=== PATIENT | female | born 1950 | race Caucasian/White ===

== ENCOUNTER 2016-03-27 17:08 | Emergency (ER) | payer BC ==
--- NOTE | 2016-03-27 20:44 | ED NURSING NOTES ---
Clinical Report - Nurses [facility] [address] [place] [address] 03/27/2016 17:08 [id number] Triage time 17:18 Mar 27 2016. Acuity: LEVEL 2. Chief Complaint: ALTERED MENTAL STATUS. Alert. No acute distress. UMAIR COMA SCORE: Sheldon Coma Scale: 15- eyes open spontaneously (4); best verbal response- oriented x 4 (5); best motor response- obeys commands (6). --17:31 Itzel Her R.N. 17:18 03/27/16. BP: 124/66. HR: 68. RR: 18. O2 saturation: 99%. Temp: 97.7 F. Pain level now 0/10. --17:31 Itzel Her R.N. Weight: 84.8 kg stated. Height/Length: 67 inches Per Patient. BMI: 29.3. --17:17 Itzel Her R.N. Medications ASA Oral. Bkc-Qjx-Jsni-D Oral. Glucosamine-Chondroitin Oral. --17:29 Itzel Her R.N. Losartan Potassium Oral. Magnesium Oral. MSM Oral. Prempro Oral. Simvastatin Oral. Vitamins/Minerals Oral. --17:29 Itzel Her R.N. Lantus Subcutaneous. --17:30 Itzel Her R.N. (meds in progress). --17:31 Itzel Her R.N. Allergies Sulfa Antibiotics. --17:29 Itzel Her R.N. History Arrived by private vehicle. Historian: patient. Primary physician (Dr. Hinton). ( found down/unconscious in the horse barn tonight around 1700, unknown amount of time pt was out in the barn. Pt was outside feeding the horses, went to go check on her, found her propped up against the stall wall, disoriented, spit/foam around her mouth Medics stated. BS 58. cannot pinpoint what time or how long this event took place. did have Glucagon Pen at home for emergencies, not used by . Pt states she remembers getting dizzy only.). This started just prior to arrival. Unknown when patient was last known well. Treatment PLATE MILL MILL HAND: Finger stick glucose performed (58, 140). PAST MEDICAL HX: Denies current . NUTRITIONAL RISK ASSESSMENT: The nutritional risk assessment revealed no deficiencies. FUNCTIONAL ASSESSMENT: Functional assessment: no impairments noted. LEARNING NEEDS ASSESSMENT: The learning needs assessment revealed no barriers. SKIN INTEGRITY ASSESSMENT: Skin integrity risk assessment completed. No skin integrity risk identified. --17:31 Itzel Her R.N. PROBLEMS: Head Injury. Contusion. LNMP - Last Normal Menstrual Period. Abrasion(s). Concussion. Tetanus Status. Fall. Laceration. Arrhythmia. Diabetes Mellitus. --17:30 Itzel Her R.N. ADDITIONAL SURGERIES: Dental Surgery. Intestinal surgery at 3 months and 21. --17:30 Itzel Her R.N. Interventions ID band on patient. To room. --17:31 Itzel Her R.N. PHYSICAL ASSESSMENT To room via stretcher. GENERAL / NEURO / PSYCH: The patient is disoriented to situation. RESPIRATORY: Respirations not labored. CVS: Capillary refill less than 2 seconds. SKIN: Skin is warm and dry. --17:38 Itzel Her R.N. NURSING PROGRESS NOTES Cardiac rhythm: normal sinus rhythm. compliance monitor, pulse oximeter and NIBP monitor placed on patient; secured entrance monitor- Lead II; monitor alarms on. Patient gowned. Head of bed elevated. Reassurance given. Side rails up x 2. Bed placed in lowest position. Brakes of bed on. ( Dr. Gill has assessed the pt.). --17:39 Itzel Her R.N. 17:38 03/27/16. BP: 124/77. HR: 69. RR: 18. O2 saturation: 99%. Pain level now 0/10. --17:39 Itzel Her R.N. 17:39 03/27/2016 Site #1 started prior to arrival by EMS via IV in the right antecubital space with an 20g angiocath; one attempt. Saline lock flushed with 5 mL saline. --17:39 Itzel Her R.N. 17:40 03/27/2016 D-50 IVP 12.5 gm given over 1 minute(s) via site #1. IV patency established. IV site checked: no pain, redness, or swelling. IV flushed thoroughly pre- and post-medication administration. IVP given by RN. --17:40 Itzel Her R.N. Finger stick glucose: 72 during triage; performed by nurse; result shown to the ED physician. --17:46 Itzel Her R.N. Finger stick glucose: 95; performed by nurse; result shown to the ED physician. --18:06 Itzel Her R.N. ( apple juice - po challenge). --18:31 Itzel Her R.N. Finger stick glucose: 103. ( Dr. Gill in room re assessing pt.). --19:22 Itzel Her R.N. 19:21 03/27/16. BP: 119/74. HR: 100. --19:22 Itzel Her R.N. 19:41 03/27/16. BP: 133/81. HR: 119. RR: 16. O2 saturation: 97% on room air. Pain level now: 04/22. --19:42 Emilie Valderrama ( Patient given PO food and fluids per provider okay). --20:07 Emilie Valderrama. DISPOSITION / DISCHARGE 20:54 03/27/16. BP: 120/82 (regular adult cuff) taken on the left arm, via an automated monitor, while sitting. HR: 100 (regular, normal rate and strong). RR: 18 (regular, unlabored and normal). O2 saturation: 96% on room air. Temp: 96.3 F (oral). --20:57 Mohit Mercer 21:18. Departure time: 2117. Condition at departure: stable. The goals identified in the patient's plan of care were met. No learning barriers present. Discharge instructions provided and reviewed with the patient. Reviewed medication(s) side effects, precautions, dosing and course information. Prescription(s) given to the patient (Liv verbalizes importance of finishing all prescribed antibiotics.). Activity restrictions (rest) reviewed. Patient verbalized understanding. Written instructions provided in Chinese. ( Liv verbalizes understanding of all d/c instructions including need for f/u with PCP. She has no questions and voices no concerns at this time.). The patient was discharged by the physician. She was discharged home and accompanied by family. She left the Emergency Department ambulatory and via private vehicle. Family member driving. UMAIR COMA SCORE: Sheldon Coma Scale: 15- eyes open spontaneously (4); best verbal response- oriented x 4 (5); best motor response- obeys commands (6). --00:06 Amaury Mcdaniel R.N. Locked/Released at 03/28/2016 0:08 by Amaury Mcdaniel R.N.
--- NOTE | 2016-03-27 20:44 | ED NURSING NOTES ---
Clinical Report - Nurses [facility] [address] [place] [address] 03/27/2016 17:08 [id number] TRI[facility] Triage time 17:18 Mar 27 2016. Acuity: LEVEL 2. Chief Complaint: ALTERED MENTAL STATUS. Alert. No acute distress. UMAIR COMA SCORE: Lovelady Coma Scale: 15- eyes open spontaneously (4); best verbal response- oriented x 4 (5); best motor response- obeys commands (6). --17:31 Itzel Her R.N. 17:18 03/27/16. BP: 124/66. HR: 68. RR: 18. O2 saturation: 99%. Temp: 97.7 F. Pain level now 0/10. --17:31 Itzel Her R.N. Weight: 84.8 kg stated. Height/Length: 67 inches Per Patient. BMI: 29.3. --17:17 Itzel Her R.N. Medications ASA Oral. Vjr-Ipl-Krru-D Oral. Glucosamine-Chondroitin Oral. --17:29 Itzel Her R.N. Losartan Potassium Oral. Magnesium Oral. MSM Oral. Prempro Oral. Simvastatin Oral. Vitamins/Minerals Oral. --17:29 Itzel Her R.N. Lantus Subcutaneous. --17:30 Itzel Her R.N. (meds in progress). --17:31 Itzel Her R.N. Allergies Sulfa Antibiotics. --17:29 Itzel Her R.N. History Arrived by private vehicle. Historian: patient. Primary physician (Dr. Hinton). ( found down/unconscious in the horse barn tonight around 1700, unknown amount of time pt was out in the barn. Pt was outside feeding the horses, went to go check on her, found her propped up against the stall wall, disoriented, spit/foam around her mouth Medics stated. BS 58. cannot pinpoint what time or how long this event took place. did have Glucagon Pen at home for emergencies, not used by . Pt states she remembers getting dizzy only.). This started just prior to arrival. Unknown when patient was last known well. Treatment INSULATION INSTALLER: Finger stick glucose performed (58, 140). PAST MEDICAL HX: Denies current . NUTRITIONAL RISK ASSESSMENT: The nutritional risk assessment revealed no deficiencies. FUNCTIONAL ASSESSMENT: Functional assessment: no impairments noted. LEARNING NEEDS ASSESSMENT: The learning needs assessment revealed no barriers. SKIN INTEGRITY ASSESSMENT: Skin integrity risk assessment completed. No skin integrity risk identified. --17:31 Itzel Her R.N. PROBLEMS: Head Injury. Contusion. LNMP - Last Normal Menstrual Period. Abrasion(s). Concussion. Tetanus Status. Fall. Laceration. Arrhythmia. Diabetes Mellitus. --17:30 Itzel Her R.N. ADDITIONAL SURGERIES: Dental Surgery. Intestinal surgery at 3 months and 21. --17:30 Itzel Her R.N. Interventions ID band on patient. To room. --17:31 Itzel Her R.N. PHYSICAL ASSESSMENT To room via stretcher. GENERAL / NEURO / PSYCH: The patient is disoriented to situation. RESPIRATORY: Respirations not labored. CVS: Capillary refill less than 2 seconds. SKIN: Skin is warm and dry. --17:38 Itzel Her R.N. NURSING PROGRESS NOTES Cardiac rhythm: normal sinus rhythm. manager floral, pulse oximeter and NIBP monitor placed on patient; cam maker- Lead II; monitor alarms on. Patient gowned. Head of bed elevated. Reassurance given. Side rails up x 2. Bed placed in lowest position. Brakes of bed on. ( Dr. Gill has assessed the pt.). --17:39 Itzel Her R.N. 17:38 03/27/16. BP: 124/77. HR: 69. RR: 18. O2 saturation: 99%. Pain level now 0/10. --17:39 Itzel Her R.N. 17:39 03/27/2016 Site #1 started prior to arrival by EMS via IV in the right antecubital space with an 20g angiocath; one attempt. Saline lock flushed with 5 mL saline. --17:39 Itzel Her R.N. 17:40 03/27/2016 D-50 IVP 12.5 gm given over 1 minute(s) via site #1. IV patency established. IV site checked: no pain, redness, or swelling. IV flushed thoroughly pre- and post-medication administration. IVP given by RN. --17:40 Itzel Her R.N. Finger stick glucose: 72 during triage; performed by nurse; result shown to the ED physician. --17:46 Itzel Her R.N. Finger stick glucose: 95; performed by nurse; result shown to the ED physician. --18:06 Itzel Her R.N. ( apple juice - po challenge). --18:31 Itzel Her R.N. Finger stick glucose: 103. ( Dr. Gill in room re assessing pt.). --19:22 Itzel Her R.N. 19:21 03/27/16. BP: 119/74. HR: 100. --19:22 Itzel Her R.N. 19:41 03/27/16. BP: 133/81. HR: 119. RR: 16. O2 saturation: 97% on room air. Pain level now: 04/22. --19:42 Emilie Valderrama ( Patient given PO food and fluids per provider okay). --20:07 Emilie Valderrama. DISPOSITION / DISCHARGE 20:54 03/27/16. BP: 120/82 (regular adult cuff) taken on the left arm, via an automated monitor, while sitting. HR: 100 (regular, normal rate and strong). RR: 18 (regular, unlabored and normal). O2 saturation: 96% on room air. Temp: 96.3 F (oral). --20:57 Mohit Mercer 21:18. Departure time: 2117. Condition at departure: stable. The goals identified in the patient's plan of care were met. No learning barriers present. Discharge instructions provided and reviewed with the patient. Reviewed medication(s) side effects, precautions, dosing and course information. Prescription(s) given to the patient (Liv verbalizes importance of finishing all prescribed antibiotics.). Activity restrictions (rest) reviewed. Patient verbalized understanding. Written instructions provided in Croatian. ( Liv verbalizes understanding of all d/c instructions including need for f/u with PCP. She has no questions and voices no concerns at this time.). The patient was discharged by the physician. She was discharged home and accompanied by family. She left the Emergency Department ambulatory and via private vehicle. Family member driving. UMAIR COMA SCORE: Lovelady Coma Scale: 15- eyes open spontaneously (4); best verbal response- oriented x 4 (5); best motor response- obeys commands (6). --00:06 Amaury Mcdaniel R.N. Locked/Released at 03/28/2016 0:08 by Amaury Mcdaniel R.N.
--- NOTE | 2016-03-27 20:44 | ED CLINICAL REPORT ---
Clinical Report - Physicians/Mid Levels [facility] [address] [place] [address] 03/27/2016 17:08 Patient: LIV RUGGIERO Time Seen: 17:19; initial patient contact. Arrived- By ambulance. Historian- patient and EMS personnel. HISTORY OF PRESENT ILLNESS Chief Complaint: ABNORMAL GLUCOSE. This started just prior to arrival and is still present. It was abrupt in onset. At its maximum, severity described as moderate. When seen in the E.D., severity described as mild. Modifying factors. Not worsened by anything. Not relieved by anything. The patient has had fatigue and weakness. (Found down in barn by . 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 Similar symptoms previously: None. Recent medical care: Not recently seen/assessed. REVIEW OF SYSTEMS No fever, cough, difficulty breathing, chest pain or abdominal pain. No nausea, vomiting, diarrhea, chills or palpitations. She has had sinus drainage, nasal congestion and blackouts. All systems otherwise negative, except as recorded above. PAST HISTORY Head Injury. Contusion. LNMP - Last Normal Menstrual Period. Abrasion(s). Concussion. Tetanus Status. Fall. Laceration. Arrhythmia. Diabetes Mellitus. ADDITIONAL SURGERIES: Dental Surgery. Intestinal surgery at 3 months and 21. Medications: Lantus Subcutaneous. Losartan Potassium Oral. Magnesium Oral. MSM Oral. Prempro Oral. Simvastatin Oral. Vitamins/Minerals Oral. ASA Oral. Edr-Xyi-Lgjd-D Oral. Glucosamine-Chondroitin Oral. Allergies: Sulfa Antibiotics. SOCIAL HISTORY Smoker - current status unknown. No recent travel. ADDITIONAL NOTES The nursing notes have been reviewed with agreement regarding the chief complaint, PMH and patient medications and allergies. PHYSICAL EXAM Vital Signs: 03/27/2016 17:18 BP: 124/66. HR: 68. RR: 18. O2 saturation: 99%. Temp: 97.7 F. Have been reviewed as normal. Appearance: Alert. No acute distress. Eyes: Eyes normal inspection. ENT: Pharynx normal. CVS: Abnormal rhythm, which is regularly irregular. Rate normal. Respiratory: No respiratory distress. Breath sounds normal. Abdomen: No visible injury. Soft and nontender. Bowel sounds normal. Skin: Skin warm and dry. Normal skin color. No rash. Extremities: No calf tenderness. No lower extremity edema. Neuro: Oriented X 3. No motor deficit. LABS, X-RAYS, AND EKG EKG: EKG time: (1720). Abnormal rhythm present (ectopic atrial rhythm w/ PAC's and abberant conduction). Normal P waves. Normal NAYELI. Normal QRS complex. Normal axis. Normal ST and T waves and QTc. Prior EKG unavailable. The study has been interpreted contemporaneously by me. The study has been independently viewed by me. The EKG appears to be a good tracing. Interpretation time: 1720. Laboratory Tests: CBC w Diff: (VIDYA: 03/27/2016 18:45) ( [facility] [place] 19:02) Final results Test Result Flag Units (Reference) WHITE BLOOD COUNT 11.6 H K/uL (4.5-11.5) RED BLOOD COUNT 4.86 M/uL (4.00-5.20) HEMOGLOBIN 14.9 gm/dL (12.0-16.0) HEMATOCRIT 46.7 H % (36.0-46.0) MEAN CELL VOLUME 96 fL (80-100) MEAN CORPUSCULAR HGB 31 pg (26-34) MEAN CORPUSCULAR HGB CONC 32 g/dL (31-37) RED CELL DISTRIBUTION WIDTH 12.7 % (11.6-14.8) PLATELET COUNT 224 K/uL (150-400) LYMPH % 12.3 L % (25-40) MONO % 4.2 % (3-14) GRANULOCYTE % 83.5 (53-90) CMP: (VIDYA: 03/27/2016 18:45) ( Msg[facility]cv[facility] 03/27/2016 19:08) Final results Test Result Flag Units (Reference) GLUCOSE 74 mg/dL (70-110) BUN 16 mg/dL (7-18) CREATININE 1.1 mg/dL (0.6-1.3) Estimated GFR 53.15 mL/min Estimated GFR- >60 mL/min Note: Persistent reduction over 3 months in eGFR<60 mL/min/1.73 m2 defines CKD. Patients with eGFR values>=60 mL/min/1.73 m2 may also have CKD if evidence ofpersistent proteinuria. Additional information may be foundat www.kidney.org. SODIUM 142 mmol/L (136-145) POTASSIUM 3.7 mmol/L (3.5-5.1) CHLORIDE 107 mmol/L (98-107) CARBON DIOXIDE 26 mmol/L (21-32) CALCIUM 8.9 mg/dL (8.5-10.1) TOTAL PROTEIN 6.6 g/dL (6.4-8.2) ALBUMIN 3.2 L g/dL (3.3-5.0) BILIRUBIN, TOTAL 0.2 mg/dL (0.0-1.0) ALKALINE PHOSPHATASE 65 U/L (46-116) AST (SGOT) 18 U/L (15-37) ALT (SGPT) 25 U/L (12-78) . PROGRESS AND PROCEDURES Course of Care: 03/27/2016 20:37 BP: 100/80. HR: 84. Vital Signs: have been reviewed. Blood pressure normal. Heart rate normal. Consult obtained from cardiology. call returned 20:20 Dr. Stein. She reviewed a copy of the EKG and does not feel any urgent interventions are necessary, especially in light of no cardiac symptoms and a clear reason for her syncope. Case discussed. Phone consult only. Disposition: Discharged home in good and improved condition. Condition: good. CLINICAL IMPRESSION Chronic, well controlled type 2 diabetes with hypoglycemia. No coma. Longstanding premature atrial contractions. Acute ethmoidal sinusitis INSTRUCTIONS Your Current Medications: CHANGE THE FOLLOWING MEDICATIONS TO: Lantus Subcutaneous : every AM, Skip tonight's dose and start your normal dose in the AM. CONTINUE TAKING THE FOLLOWING MEDICATIONS: ASA Oral. Nrf-Yms-Vwnh-D Oral. Glucosamine-Chondroitin Oral. Losartan Potassium Oral. Magnesium Oral. MSM Oral. Prempro Oral. Simvastatin Oral. Vitamins/Minerals Oral. Prescription Medications: Azithromycin 500 mg tablets: take 1 orally every day for 3 days. Total course 3 days. No refills. Follow-up: Screening today revealed the patient's blood pressure to be in the normal range. Follow-up with: Tico Fong MD, Cardiology, , [facility] - Cardiology, [address] , [place], [address] Follow up in about two days. Call for an appointment. (Electronically signed by Facundo Gill Dr. 03/28/2016 20:40)
--- NOTE | 2016-03-27 20:44 | ED CLINICAL REPORT ---
Clinical Report - Physicians/Mid Levels [facility] [address] [place] [address] 03/27/2016 17:08 Patient: LIV RUGGIERO Time Seen: 17:19; initial patient contact. Arrived- By ambulance. Historian- patient and EMS personnel. HISTORY OF PRESENT ILLNESS Chief Complaint: ABNORMAL GLUCOSE. This started just prior to arrival and is still present. It was abrupt in onset. At its maximum, severity described as moderate. When seen in the E.D., severity described as mild. Modifying factors. Not worsened by anything. Not relieved by anything. The patient has had fatigue and weakness. (Found down in barn by . 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 Similar symptoms previously: None. Recent medical care: Not recently seen/assessed. REVIEW OF SYSTEMS No fever, cough, difficulty breathing, chest pain or abdominal pain. No nausea, vomiting, diarrhea, chills or palpitations. She has had sinus drainage, nasal congestion and blackouts. All systems otherwise negative, except as recorded above. PAST HISTORY Head Injury. Contusion. LNMP - Last Normal Menstrual Period. Abrasion(s). Concussion. Tetanus Status. Fall. Laceration. Arrhythmia. Diabetes Mellitus. ADDITIONAL SURGERIES: Dental Surgery. Intestinal surgery at 3 months and 21. Medications: Lantus Subcutaneous. Losartan Potassium Oral. Magnesium Oral. MSM Oral. Prempro Oral. Simvastatin Oral. Vitamins/Minerals Oral. ASA Oral. Jvi-Zzy-Ckqo-D Oral. Glucosamine-Chondroitin Oral. Allergies: Sulfa Antibiotics. SOCIAL HISTORY Smoker - current status unknown. No recent travel. ADDITIONAL NOTES The nursing notes have been reviewed with agreement regarding the chief complaint, PMH and patient medications and allergies. PHYSICAL EXAM Vital Signs: 03/27/2016 17:18 BP: 124/66. HR: 68. RR: 18. O2 saturation: 99%. Temp: 97.7 F. Have been reviewed as normal. Appearance: Alert. No acute distress. Eyes: Eyes normal inspection. ENT: Pharynx normal. CVS: Abnormal rhythm, which is regularly irregular. Rate normal. Respiratory: No respiratory distress. Breath sounds normal. Abdomen: No visible injury. Soft and nontender. Bowel sounds normal. Skin: Skin warm and dry. Normal skin color. No rash. Extremities: No calf tenderness. No lower extremity edema. Neuro: Oriented X 3. No motor deficit. LABS, X-RAYS, AND EKG EKG: EKG time: (1720). Abnormal rhythm present (ectopic atrial rhythm w/ PAC's and abberant conduction). Normal P waves. Normal NAYELI. Normal QRS complex. Normal axis. Normal ST and T waves and QTc. Prior EKG unavailable. The study has been interpreted contemporaneously by me. The study has been independently viewed by me. The EKG appears to be a good tracing. Interpretation time: 1720. Laboratory Tests: CBC w Diff: (VIDYA: 03/27/2016 18:45) ( [facility] [place]) Final results Test Result Flag Units (Reference) WHITE BLOOD COUNT 11.6 H K/uL (4.5-11.5) RED BLOOD COUNT 4.86 M/uL (4.00-5.20) HEMOGLOBIN 14.9 gm/dL (12.0-16.0) HEMATOCRIT 46.7 H % (36.0-46.0) MEAN CELL VOLUME 96 fL (80-100) MEAN CORPUSCULAR HGB 31 pg (26-34) MEAN CORPUSCULAR HGB CONC 32 g/dL (31-37) RED CELL DISTRIBUTION WIDTH 12.7 % (11.6-14.8) PLATELET COUNT 224 K/uL (150-400) LYMPH % 12.3 L % (25-40) MONO % 4.2 % (3-14) GRANULOCYTE % 83.5 (53-90) CMP: (VIDYA: 03/27/2016 18:45) ( MsgRcvd 03/27/2016 19:08) Final results Test Result Flag Units (Reference) GLUCOSE 74 mg/dL (70-110) BUN 16 mg/dL (7-18) CREATININE 1.1 mg/dL (0.6-1.3) Estimated GFR 53.15 mL/min Estimated GFR- >60 mL/min Note: Persistent reduction over 3 months in eGFR<60 mL/min/1.73 m2 defines CKD. Patients with eGFR values>=60 mL/min/1.73 m2 may also have CKD if evidence ofpersistent proteinuria. Additional information may be foundat www.kidney.org. SODIUM 142 mmol/L (136-145) POTASSIUM 3.7 mmol/L (3.5-5.1) CHLORIDE 107 mmol/L (98-107) CARBON DIOXIDE 26 mmol/L (21-32) CALCIUM 8.9 mg/dL (8.5-10.1) TOTAL PROTEIN 6.6 g/dL (6.4-8.2) ALBUMIN 3.2 L g/dL (3.3-5.0) BILIRUBIN, TOTAL 0.2 mg/dL (0.0-1.0) ALKALINE PHOSPHATASE 65 U/L (46-116) AST (SGOT) 18 U/L (15-37) ALT (SGPT) 25 U/L (12-78) . PROGRESS AND PROCEDURES Course of Care: 03/27/2016 20:37 BP: 100/80. HR: 84. Vital Signs: have been reviewed. Blood pressure normal. Heart rate normal. Consult obtained from cardiology. call returned 20:20 Dr. Stein. She reviewed a copy of the EKG and does not feel any urgent interventions are necessary, especially in light of no cardiac symptoms and a clear reason for her syncope. Case discussed. Phone consult only. Disposition: Discharged home in good and improved condition. Condition: good. CLINICAL IMPRESSION Chronic, well controlled type 2 diabetes with hypoglycemia. No coma. Longstanding premature atrial contractions. Acute ethmoidal sinusitis INSTRUCTIONS Your Current Medications: CHANGE THE FOLLOWING MEDICATIONS TO: Lantus Subcutaneous : every AM, Skip tonight's dose and start your normal dose in the AM. CONTINUE TAKING THE FOLLOWING MEDICATIONS: ASA Oral. Qir-Xhh-Ofjr-D Oral. Glucosamine-Chondroitin Oral. Losartan Potassium Oral. Magnesium Oral. MSM Oral. Prempro Oral. Simvastatin Oral. Vitamins/Minerals Oral. Prescription Medications: Azithromycin 500 mg tablets: take 1 orally every day for 3 days. Total course 3 days. No refills. Follow-up: Screening today revealed the patient's blood pressure to be in the normal range. Follow-up with: Tico Fong MD, Cardiology, , [facility] - Cardiology, [address] , [place], [address] Follow up in about two days. Call for an appointment. (Electronically signed by Facundo Gill Dr. 03/28/2016 20:40)
--- NOTE | 2016-03-27 20:44 | ED ORDER SUMMARY ---
..... Patient: LIV RUGGIERO OrderSheet [facility] VisitID: [id number] [address] [place] [address] 65y, F Registration Date/Time: 03/27/2016 ORDER SHEET Weight: 84.8 kg (stated) Allergies: Sulfa Antibiotics GENERAL ORDERS: CBC w Diff Urgent (18:25 03/27/2016 Shaylee Kauffman) (Ack 18:27 LTapper) (20:46 AMcQuoid ER Tech1) CMP Urgent (18:25 03/27/2016 Shaylee Kauffman) (Ack 18:27 LTapper) (20:46 AMcQuoid ER Tech1) UA-Culture if indicated Urgent (18:25 03/27/2016 Shaylee Kauffman) (Ack 18:27 LTapper) (Cancelled: Other20:48 AMcQuoid ER Tech1) MEDICATION ORDERS: IV FLUIDS: D-50 IV 1/2 amp (HIGH ALERT MEDICATION, NOW, IVP) (17:34 03/27/2016 Shaylee Kauffman) (17:40 Mauricio Price) IV Saline Lock (18:25 03/27/2016 Shaylee Kauffman) (18:31 Mauricio Jackson.Denny) ORDER SHEET NOTES: [Electronically signed by Amaury Mcdaniel R.N. (00:08 03/28/2016)] [Electronically signed by Facundo Gill Dr. (20:40 03/28/2016)] [Electronically locked/signed by Amaury Mcdaniel R.N. (00:08 03/28/2016)]
--- NOTE | 2016-03-27 20:44 | ED ORDER SUMMARY ---
..... Patient: LIV RUGGIERO OrderSheet [facility] VisitID: [id number] [address] [place] [address] 65y, F Registration Date/Time: 03/27/2016 ORDER SHEET Weight: 84.8 kg (stated) Allergies: Sulfa Antibiotics GENERAL ORDERS: CBC w Diff Urgent (18:25 03/27/2016 Shaylee Kauffman) (Ack 18:27 LTapper) (20:46 AMcQuoid ER Tech1) CMP Urgent (18:25 03/27/2016 Shaylee Kauffman) (Ack 18:27 LTapper) (20:46 AMcQuoid ER Tech1) UA-Culture if indicated Urgent (18:25 03/27/2016 Shaylee Kauffman) (Ack 18:27 LTapper) (Cancelled: Other20:48 AMcQuoid ER Tech1) MEDICATION ORDERS: IV FLUIDS: D-50 IV 1/2 amp (HIGH ALERT MEDICATION, NOW, IVP) (17:34 03/27/2016 Shaylee Kauffman) (17:40 Mauricio Price) IV Saline Lock (18:25 03/27/2016 Shaylee Kauffman) (18:31 Mauricio Jackson.Denny) ORDER SHEET NOTES: [Electronically signed by Amaury Mcdaniel R.N. (00:08 03/28/2016)] [Electronically signed by Facundo Gill Dr. (20:40 03/28/2016)] [Electronically locked/signed by Amaury Mcdaniel R.N. (00:08 03/28/2016)]
--- NOTE | 2016-03-28 20:41 | ED DISCHARGE INSTRUCTIONS ---
Patient: LIV RUGGIERO General Instructions [facility] VisitID: [id number] [address] [place] [address] 65y, F Registration Date/Time: 03/27/2016 Chronic, well controlled type 2 diabetes with hypoglycemia. No coma. Longstanding premature atrial contractions. Acute ethmoidal sinusitis INSTRUCTIONS Your Current Medications: CHANGE THE FOLLOWING MEDICATIONS TO: Lantus Subcutaneous : every AM, Skip tonight's dose and start your normal dose in the AM. CONTINUE TAKING THE FOLLOWING MEDICATIONS: ASA Oral. Sbw-Ymx-Yrdo-D Oral. Glucosamine-Chondroitin Oral. Losartan Potassium Oral. Magnesium Oral. MSM Oral. Prempro Oral. Simvastatin Oral. Vitamins/Minerals Oral. Prescription Medications: Azithromycin 500 mg tablets: take 1 orally every day for 3 days. Total course 3 days. No refills. Follow-up: Screening today revealed the patient's blood pressure to be in the normal range. Follow-up with: Tico Fong MD, Cardiology, , [facility] - Cardiology, [address] , [place], [address] Follow up in about two days. Call for an appointment. ADDITIONAL INFORMATION Insulin Reaction (Low Blood Sugar) You have been treated for an insulin reaction today. This occurs when insulin causes your blood sugar to gotoo low(hypoglycemia). It may happen if you take too much insulin. It can also occur from taking your usual amount of insulin, but not eating enough food due to vomiting or loss of appetite. Other causes include heavy exercise, strong emotions, missing meals, and alcohol use. Some people are sensitive to the following, which can also lower blood sugar: tobacco, caffeine and certain medicines [aspirin, Haldol (haloperidol), Darvon or Darvocet (propoxyphene), Thorazine (chlorpromazine), Inderal (propranolol), Norpace (disopyramide)]. If you suspect any of these may be affecting you, stop smoking, switch to decaf coffee, and avoid teas and mario that contain caffeine. If you are taking any of the listed medicines, talk to your doctor about switching to another type. A class of medicine called beta blockers is used for high blood pressure, rapid heart rates and other conditions. Beta blockers may prevent the early symptoms of low blood sugar. In that case, you would not know that you were having a reaction until your blood sugar becomes dangerously low. If you are taking a beta lilo, talk to your doctor about switching to a different class. The beta lilo class includes Inderal (propranolol), Tenormin (atenolol), Lopressor (metoprolol), Corgard (nadolol), Trandateand Normodyne (labetalol) and Coreg (carvedilol). Home Care: During the next 24 hours rest and eat frequent small meals to avoid recurrence of low blood sugar. Learn the warning signals your body gives as your blood sugar starts to drop. See below. Always carry a source of fast-acting sugar with you in case you get symptoms of low blood sugar again. At the first sign of low blood sugar, eat or drink 15 to 20 grams of fast-acting sugar to raise your blood sugar. Examples include: 3 to 4 glucose tablets (found at most drugstores) 4 ounces (1/2 cup) of non-diet cola drinks (Coke, Pepsi, root beer, etc.) 4 ounces (1/2 cup) of fruit juice 2 tablespoons of raisins 1 tablespoon of honey Check your blood sugar 15 minutes after treating yourself. If it is still low, take another 15 to 20 grams of fast-acting sugar. Test again in 15 minutes. If its still low, go to an emergency room. Once your blood sugar returns to normal, eat a snack or meal to keep your blood sugar in a safe range. In the future, if you are not able to eat your normal amount at each meal due to illness or vomiting, you MUST reduce your insulin dose. Contact your doctor to ask for a temporary adjustment of your dose. If you cannot eat, and there is a delay in reaching your doctor, reduce your daily insulin dose to one-half of what you usually take. Check your blood sugar every 4-6 hours. Do this until you are able to begin eating normal amounts again. Wear a medical alert bracelet or carry a card in your wallet explaining that you are diabetic. In the event that you have a severe hypoglycemic reaction and are unable to give this information, it will help medical personnel provide proper care. Follow Up: Check and write down your blood sugar and insulin dose twice a daybefore breakfast and before dinner. Do this for the next 5 days. See your doctor during the next week to review these records. This will help determine if you need to adjust your insulin dose. For more information about diabetes, contact the [employer]. www.diabetes.org or 298-402-5697. Get Prompt Medical Attention if any of the following occur: HIGH BLOOD SUGAR: frequent urination, dizziness, drowsiness, thirst, headache, nausea or vomiting, abdominal pain, vision changes, fast breathing, confusion or loss of consciousness LOW BLOOD SUGAR: fatigue, headache, shakes, excess sweating, hunger, feeling anxious or restless, vision changes, drowsiness, weakness, confusion, or loss of consciousness Sinusitis [Abx Tx] The sinuses are air-filled spaces within the bones of the face. They connect to the inside of the nose. Sinusitis is an inflammation of the tissue lining the sinus cavity. Sinus inflammation can occur during a cold or hay-fever (allergies to pollens and other particles in the air) and cause symptoms of sinus congestion and fullness. A sinus infection causes fever, headache and facial pain. There is usually green or yellow drainage from the nose or into the back of the throat (post-nasal drip). Antibiotics are prescribed to treat this condition. Home Care: Drink plenty of water, hot tea, and other liquids to stay well hydrated. This thins the mucus and promotes sinus drainage. Apply heat to the painful areas of the face. Use a towel soaked in hot water. Or, labor standards director the shower and direct the hot spray onto your face. This is a good way to inhale warm water vapor and get heat on your face at the same time. (Cover your mouth and nose with your hands so you can still breathe as you do this.) Use a vaporizer with products such as VicRegenerate VapoRub (contains menthol) at night. Suck on peppermint, menthol or eucalyptus hard candies during the day. An expectorant containing guaifenesin (such as Robitussin), helps to thin the mucus and promote drainage from the sinuses. Npdo-sew-jrgaeyn decongestants may be used unless a similar medicine was prescribed. Nasal sprays work the fastest. Use one that contains phenylephrine (Cornell-synephrine, Sinex and others) or oxymetazoline (Afrin). First blow the nose gently to remove mucus, then apply the drops. Do not use these medicines more often than directed on the label or for more than three days or symptoms may worsen. You may also use tablets containing pseudoephedrine (Sudafed). Many sinus remedies combine ingredients, which may increase side effects. Read the labels or ask the pharmacist for help. NOTE: Persons with high blood pressure should not use decongestants. They can raise blood pressure. Antihistamines are useful if allergies are a cause of your sinusitis. The mildest one is chlorpheniramine (available without a prescription). The dose for adults is 8-12mg three times a day. [NOTE: Do not use chlorpheniramine if you have glaucoma or if you are a man with trouble urinating due to an enlarged prostate.] Claritin (loratidine) is an antihistamine that causes less drowsiness and is a good alternative for daytime use. Do not use nasal rinses or irrigation during an acute sinus infection, unless advised by your doctor. Rinsing may spread the infection to other sinuses. You may use acetaminophen (Tylenol) or ibuprofen (Motrin, Advil) to control pain, unless another pain medicine was prescribed. [ NOTE: If you have chronic liver or kidney disease or ever had a stomach ulcer, talk with your doctor before using these medicines.] (Aspirin should never be used in anyone under 18 years of age who is ill with a fever. It may cause severe liver damage.) Finish the full course, even if you are feeling better after a few days. Follow Up with your doctor or this facility in one week or as instructed by our staff if not improving. Get Prompt Medical Attention if any of the following occur: Facial pain or headache becomes more severe Stiff neck Unusual drowsiness or confusion, or not acting like your normal self Swelling of the forehead or eyelids Vision problems including blurred or double vision Fever of 100.4F (38C) or higher, or as directed by your healthcare provider Seizure Azithromycin Oral tablet What is this medicine? AZITHROMYCIN (az ith fahad MYE sin) is a macrolide antibiotic. It is used to treat or prevent certain kinds of bacterial infections. It will not work for colds, flu, or other viral infections. How should I use this medicine? Take this medicine by mouth with a full glass of water. Follow the directions on the prescription label. The tablets can be taken with food or on an empty stomach. If the medicine upsets your stomach, take it with food. Take your medicine at regular intervals. Do not take your medicine more often than directed. Take all of your medicine as directed even if you think your are better. Do not skip doses or stop your medicine early. Talk to your rivet heater regarding the use of this medicine in children. Special care may be needed. What side effects may I notice from receiving this medicine? Side effects that you should report to your doctor or health healthcare project manager as soon as possible: allergic reactions like skin rash, itching or hives, swelling of the face, lips, or tongue confusion, nightmares or hallucinations dark urine difficulty breathing hearing loss irregular heartbeat or chest pain pain or difficulty passing urine redness, blistering, peeling or loosening of the skin, including inside the mouth white patches or sores in the mouth yellowing of the eyes or skin Side effects that usually do not require medical attention (report to your doctor or health healthcare project manager if they continue or are bothersome): diarrhea dizziness, drowsiness headache stomach upset or vomiting tooth discoloration vaginal irritation What may interact with this medicine? Do not take this medicine with any of the following medications: lincomycin This medicine may also interact with the following medications: amiodarone antacids cyclosporine digoxin magnesium nelfinavir phenytoin warfarin What if I miss a dose? If you miss a dose, take it as soon as you can. If it is almost time for your next dose, take only that dose. Do not take double or extra doses. Where should I keep my medicine? Keep out of the reach of children. Store at room temperature between 15 and 30 degrees C (59 and 86 degrees F). Throw away any unused medicine after the expiration date. What should I tell my health care provider before I take this medicine? They need to know if you have any of these conditions: kidney disease liver disease irregular heartbeat or heart disease an unusual or allergic reaction to azithromycin, erythromycin, other macrolide antibiotics, foods, dyes, or preservatives or trying to get breast-feeding What should I watch for while using this medicine? Tell your doctor or health healthcare project manager if your symptoms do not improve. Do not treat diarrhea with over the counter products. Contact your doctor if you have diarrhea that lasts more than 2 days or if it is severe and watery. This medicine can make you more sensitive to the sun. Keep out of the sun. If you cannot avoid being in the sun, wear protective clothing and use sunscreen. Do not use sun lamps or tanning beds/booths. You have been given the following additional information: Diabetic Insulin Reaction Sinusitis, Abx Tx Azithromycin Oral tablet (Electronically signed by Facundo Gill Dr. 03/28/2016 20:40)
--- NOTE | 2016-03-28 20:41 | ED DISCHARGE INSTRUCTIONS ---
Patient: LIV RGUGIERO General Instructions [facility] VisitID: [id number] [address] [place] [address] 65y, F Registration Date/Time: 03/27/2016 Chronic, well controlled type 2 diabetes with hypoglycemia. No coma. Longstanding premature atrial contractions. Acute ethmoidal sinusitis INSTRUCTIONS Your Current Medications: CHANGE THE FOLLOWING MEDICATIONS TO: Lantus Subcutaneous : every AM, Skip tonight's dose and start your normal dose in the AM. CONTINUE TAKING THE FOLLOWING MEDICATIONS: ASA Oral. Ptb-Kxk-Trbw-D Oral. Glucosamine-Chondroitin Oral. Losartan Potassium Oral. Magnesium Oral. MSM Oral. Prempro Oral. Simvastatin Oral. Vitamins/Minerals Oral. Prescription Medications: Azithromycin 500 mg tablets: take 1 orally every day for 3 days. Total course 3 days. No refills. Follow-up: Screening today revealed the patient's blood pressure to be in the normal range. Follow-up with: Tico Fong MD, Cardiology, , [facility] - Cardiology, [address] , [place], [address] Follow up in about two days. Call for an appointment. ADDITIONAL INFORMATION Insulin Reaction (Low Blood Sugar) You have been treated for an insulin reaction today. This occurs when insulin causes your blood sugar to gotoo low(hypoglycemia). It may happen if you take too much insulin. It can also occur from taking your usual amount of insulin, but not eating enough food due to vomiting or loss of appetite. Other causes include heavy exercise, strong emotions, missing meals, and alcohol use. Some people are sensitive to the following, which can also lower blood sugar: tobacco, caffeine and certain medicines [aspirin, Haldol (haloperidol), Darvon or Darvocet (propoxyphene), Thorazine (chlorpromazine), Inderal (propranolol), Norpace (disopyramide)]. If you suspect any of these may be affecting you, stop smoking, switch to decaf coffee, and avoid teas and mario that contain caffeine. If you are taking any of the listed medicines, talk to your doctor about switching to another type. A class of medicine called beta blockers is used for high blood pressure, rapid heart rates and other conditions. Beta blockers may prevent the early symptoms of low blood sugar. In that case, you would not know that you were having a reaction until your blood sugar becomes dangerously low. If you are taking a beta lilo, talk to your doctor about switching to a different class. The beta lilo class includes Inderal (propranolol), Tenormin (atenolol), Lopressor (metoprolol), Corgard (nadolol), Trandateand Normodyne (labetalol) and Coreg (carvedilol). Home Care: During the next 24 hours rest and eat frequent small meals to avoid recurrence of low blood sugar. Learn the warning signals your body gives as your blood sugar starts to drop. See below. Always carry a source of fast-acting sugar with you in case you get symptoms of low blood sugar again. At the first sign of low blood sugar, eat or drink 15 to 20 grams of fast-acting sugar to raise your blood sugar. Examples include: 3 to 4 glucose tablets (found at most drugstores) 4 ounces (1/2 cup) of non-diet cola drinks (Coke, Pepsi, root beer, etc.) 4 ounces (1/2 cup) of fruit juice 2 tablespoons of raisins 1 tablespoon of honey Check your blood sugar 15 minutes after treating yourself. If it is still low, take another 15 to 20 grams of fast-acting sugar. Test again in 15 minutes. If its still low, go to an emergency room. Once your blood sugar returns to normal, eat a snack or meal to keep your blood sugar in a safe range. In the future, if you are not able to eat your normal amount at each meal due to illness or vomiting, you MUST reduce your insulin dose. Contact your doctor to ask for a temporary adjustment of your dose. If you cannot eat, and there is a delay in reaching your doctor, reduce your daily insulin dose to one-half of what you usually take. Check your blood sugar every 4-6 hours. Do this until you are able to begin eating normal amounts again. Wear a medical alert bracelet or carry a card in your wallet explaining that you are diabetic. In the event that you have a severe hypoglycemic reaction and are unable to give this information, it will help medical personnel provide proper care. Follow Up: Check and write down your blood sugar and insulin dose twice a daybefore breakfast and before dinner. Do this for the next 5 days. See your doctor during the next week to review these records. This will help determine if you need to adjust your insulin dose. For more information about diabetes, contact the [employer]. www.diabetes.org or 607-042-8328. Get Prompt Medical Attention if any of the following occur: HIGH BLOOD SUGAR: frequent urination, dizziness, drowsiness, thirst, headache, nausea or vomiting, abdominal pain, vision changes, fast breathing, confusion or loss of consciousness LOW BLOOD SUGAR: fatigue, headache, shakes, excess sweating, hunger, feeling anxious or restless, vision changes, drowsiness, weakness, confusion, or loss of consciousness Sinusitis [Abx Tx] The sinuses are air-filled spaces within the bones of the face. They connect to the inside of the nose. Sinusitis is an inflammation of the tissue lining the sinus cavity. Sinus inflammation can occur during a cold or hay-fever (allergies to pollens and other particles in the air) and cause symptoms of sinus congestion and fullness. A sinus infection causes fever, headache and facial pain. There is usually green or yellow drainage from the nose or into the back of the throat (post-nasal drip). Antibiotics are prescribed to treat this condition. Home Care: Drink plenty of water, hot tea, and other liquids to stay well hydrated. This thins the mucus and promotes sinus drainage. Apply heat to the painful areas of the face. Use a towel soaked in hot water. Or, human resource management instructor the shower and direct the hot spray onto your face. This is a good way to inhale warm water vapor and get heat on your face at the same time. (Cover your mouth and nose with your hands so you can still breathe as you do this.) Use a vaporizer with products such as VicCanary VapoRub (contains menthol) at night. Suck on peppermint, menthol or eucalyptus hard candies during the day. An expectorant containing guaifenesin (such as Robitussin), helps to thin the mucus and promote drainage from the sinuses. Kdmg-ght-srwdzpo decongestants may be used unless a similar medicine was prescribed. Nasal sprays work the fastest. Use one that contains phenylephrine (Cornell-synephrine, Sinex and others) or oxymetazoline (Afrin). First blow the nose gently to remove mucus, then apply the drops. Do not use these medicines more often than directed on the label or for more than three days or symptoms may worsen. You may also use tablets containing pseudoephedrine (Sudafed). Many sinus remedies combine ingredients, which may increase side effects. Read the labels or ask the pharmacist for help. NOTE: Persons with high blood pressure should not use decongestants. They can raise blood pressure. Antihistamines are useful if allergies are a cause of your sinusitis. The mildest one is chlorpheniramine (available without a prescription). The dose for adults is 8-12mg three times a day. [NOTE: Do not use chlorpheniramine if you have glaucoma or if you are a man with trouble urinating due to an enlarged prostate.] Claritin (loratidine) is an antihistamine that causes less drowsiness and is a good alternative for daytime use. Do not use nasal rinses or irrigation during an acute sinus infection, unless advised by your doctor. Rinsing may spread the infection to other sinuses. You may use acetaminophen (Tylenol) or ibuprofen (Motrin, Advil) to control pain, unless another pain medicine was prescribed. [ NOTE: If you have chronic liver or kidney disease or ever had a stomach ulcer, talk with your doctor before using these medicines.] (Aspirin should never be used in anyone under 18 years of age who is ill with a fever. It may cause severe liver damage.) Finish the full course, even if you are feeling better after a few days. Follow Up with your doctor or this facility in one week or as instructed by our staff if not improving. Get Prompt Medical Attention if any of the following occur: Facial pain or headache becomes more severe Stiff neck Unusual drowsiness or confusion, or not acting like your normal self Swelling of the forehead or eyelids Vision problems including blurred or double vision Fever of 100.4F (38C) or higher, or as directed by your healthcare provider Seizure Azithromycin Oral tablet What is this medicine? AZITHROMYCIN (az ith fahad MYE sin) is a macrolide antibiotic. It is used to treat or prevent certain kinds of bacterial infections. It will not work for colds, flu, or other viral infections. How should I use this medicine? Take this medicine by mouth with a full glass of water. Follow the directions on the prescription label. The tablets can be taken with food or on an empty stomach. If the medicine upsets your stomach, take it with food. Take your medicine at regular intervals. Do not take your medicine more often than directed. Take all of your medicine as directed even if you think your are better. Do not skip doses or stop your medicine early. Talk to your feather curling machine operator regarding the use of this medicine in children. Special care may be needed. What side effects may I notice from receiving this medicine? Side effects that you should report to your doctor or health daycare provider as soon as possible: allergic reactions like skin rash, itching or hives, swelling of the face, lips, or tongue confusion, nightmares or hallucinations dark urine difficulty breathing hearing loss irregular heartbeat or chest pain pain or difficulty passing urine redness, blistering, peeling or loosening of the skin, including inside the mouth white patches or sores in the mouth yellowing of the eyes or skin Side effects that usually do not require medical attention (report to your doctor or health daycare provider if they continue or are bothersome): diarrhea dizziness, drowsiness headache stomach upset or vomiting tooth discoloration vaginal irritation What may interact with this medicine? Do not take this medicine with any of the following medications: lincomycin This medicine may also interact with the following medications: amiodarone antacids cyclosporine digoxin magnesium nelfinavir phenytoin warfarin What if I miss a dose? If you miss a dose, take it as soon as you can. If it is almost time for your next dose, take only that dose. Do not take double or extra doses. Where should I keep my medicine? Keep out of the reach of children. Store at room temperature between 15 and 30 degrees C (59 and 86 degrees F). Throw away any unused medicine after the expiration date. What should I tell my health care provider before I take this medicine? They need to know if you have any of these conditions: kidney disease liver disease irregular heartbeat or heart disease an unusual or allergic reaction to azithromycin, erythromycin, other macrolide antibiotics, foods, dyes, or preservatives or trying to get breast-feeding What should I watch for while using this medicine? Tell your doctor or health daycare provider if your symptoms do not improve. Do not treat diarrhea with over the counter products. Contact your doctor if you have diarrhea that lasts more than 2 days or if it is severe and watery. This medicine can make you more sensitive to the sun. Keep out of the sun. If you cannot avoid being in the sun, wear protective clothing and use sunscreen. Do not use sun lamps or tanning beds/booths. You have been given the following additional information: Diabetic Insulin Reaction Sinusitis, Abx Tx Azithromycin Oral tablet (Electronically signed by Facundo Gill Dr. 03/28/2016 20:40)
--- NOTE | 2016-03-28 20:41 | ED MED RECONCILIATION SUMMARY ---
Patient: LIV RUGGIERO Medication Reconciliation Report [facility] VisitID: [id number] [address] [place] [address] 65y, F Registration Date/Time: 03/27/2016 Weight: 84.8 kg Height/Length: 67 in. BMI: 29.3 ALLERGIES: Sulfa Antibiotics The patient's Home Medications are listed below: CHANGE THE FOLLOWING MEDICATIONS TO: Lantus Subcutaneous : every AM, Skip tonight's dose and start your normal dose in the AM. CONTINUE TAKING THE FOLLOWING MEDICATIONS: ASA Oral Wjg-Evd-Klqx-D Oral Glucosamine-Chondroitin Oral Losartan Potassium Oral Magnesium Oral MSM Oral Prempro Oral Simvastatin Oral Vitamins/Minerals Oral The source(s) of the original Home Medication information: meds in progress The following Medications were given to the patient in the Emergency Department: D-50 [IVP] IVP 12.5 gm, administered: 03/27/2016 5:40:00 PM The following Medications were prescribed to the patient: Azithromycin 500 mg tablets: take 1 orally every day for 3 days. Total course 3 days. No refills. -- Facundo Gill Dr.
--- NOTE | 2016-03-28 20:41 | ED MAR SUMMARY ---
..... Medication Administration Record [facility] [address] [place] [address] Patient: LIV RUGGIERO Visit ID: [id number] 65y, F Weight: 84.8 kg Height/Length: 67 in BMI: 29.3 ALLERGIES: Sulfa Antibiotics Given 17:40 03/27/2016 Itzel Her R.N. Medication Administered: D-50 [IVP], Dose: 12.5 gm IVP over 1 minute(s), Site: #1 right AC. Medication Ordered: D-50 IV 1/2 amp (HIGH ALERT MEDICATION, NOW, IVP).
--- NOTE | 2016-03-28 20:41 | ED MED RECONCILIATION SUMMARY ---
Patient: LIV RUGGIERO Medication Reconciliation Report [facility] VisitID: [id number] [address] [place] [address] 65y, F Registration Date/Time: 03/27/2016 Weight: 84.8 kg Height/Length: 67 in. BMI: 29.3 ALLERGIES: Sulfa Antibiotics The patient's Home Medications are listed below: CHANGE THE FOLLOWING MEDICATIONS TO: Lantus Subcutaneous : every AM, Skip tonight's dose and start your normal dose in the AM. CONTINUE TAKING THE FOLLOWING MEDICATIONS: ASA Oral Kge-Eth-Xayh-D Oral Glucosamine-Chondroitin Oral Losartan Potassium Oral Magnesium Oral MSM Oral Prempro Oral Simvastatin Oral Vitamins/Minerals Oral The source(s) of the original Home Medication information: meds in progress The following Medications were given to the patient in the Emergency Department: D-50 [IVP] IVP 12.5 gm, administered: 03/27/2016 5:40:00 PM The following Medications were prescribed to the patient: Azithromycin 500 mg tablets: take 1 orally every day for 3 days. Total course 3 days. No refills. -- Facundo Gill Dr.
--- NOTE | 2016-03-28 20:41 | ED MAR SUMMARY ---
..... Medication Administration Record [facility] [address] [place] [address] Patient: LIV RUGGIERO Visit ID: [id number] 65y, F Weight: 84.8 kg Height/Length: 67 in BMI: 29.3 ALLERGIES: Sulfa Antibiotics Given 17:40 03/27/2016 Itzel Her R.N. Medication Administered: D-50 [IVP], Dose: 12.5 gm IVP over 1 minute(s), Site: #1 right AC. Medication Ordered: D-50 IV 1/2 amp (HIGH ALERT MEDICATION, NOW, IVP).
== END 2016-03-27 21:18 | disposition home or self-care (01) ==
LOC: ED SRH 17:08
DX: E11.649 Type 2 diabetes mellitus with hypoglycemia without coma (principal); I49.1 Atrial premature depolarization; J01.20 Acute ethmoidal sinusitis, unspecified; Z79.4 Long term (current) use of insulin; Z88.2 Allergy status to sulfonamides; Z79.899 Other long term (current) drug therapy
CPT/HCPCS: 90074; 90098; 90100; 95059